=== PATIENT | male | born 1975 | race Caucasian/White ===

== ENCOUNTER → 2018-05-07 06:57 | Outpatient (CLI) | payer OTHER | LOC: D.MRI 06:57 | DX: M25.561 Pain in right knee (principal) ==

== ENCOUNTER 2018-06-13 06:11 | Day surgery (SDC) | payer OTHER ==
[~2018-06-13] VITALS: Ht 175.3 cm; Wt 86.6 kg
[2018-06-13 08:49] LABS: EOSINOPHILS 6.4 % (0-7); HEMATOCRIT 40.9 % (42.0-54.0); LYMPHOCYTES 25.7 % (15-50); MCH 32.2 pg (26.0-34.0); MCHC 34.2 g/dL (31.0-37.0); MEAN PLATELET VOLUME 9.2 fL (7.4-10.4); MONOCYTES 19.3 % (2-11); NEUTROPHILS 46.6 % (40-80); PLATELET COUNT 335 10x3/uL (130-400); RBC 4.35 10x6/uL (4.20-6.10); WBC 3.6 10x3/uL (4.8-10.8)
[2018-06-13 09:00] LABS: INR 1.15 (0.85-1.17); PROTIME 14.2 SECONDS (11.6-15.0)
[2018-06-13] MEDS ORDERED: ACIDOPHILUS-PE1 EACH PO (09:01)
[2018-06-13] MEDS ORDERED: TEGRETOL 100 M100 MG PO (09:02)
[2018-06-13] MEDS ORDERED: NEURONTIN 300300 MG PO (09:02)
[2018-06-13] MEDS ORDERED: HYDROCODON-ACE1 EAC7 PO (09:03)
[2018-06-13] MEDS ORDERED: MOBIC7.5 MG PO (09:04)
[2018-06-13] MEDS ORDERED: ZOSYN 3.3753.375 G1 IV (09:04)
[2018-06-13] MEDS ORDERED: EFFEXOR75 MG PO (09:05)
[2018-06-13 09:06] LABS: ALBUMIN 3.6 g/dL (3.4-5.0); ALKALINE PHOSPHATASE 76 U/L (46-116); ALT (SGPT) 49 U/L (10-68); CALC OSMOLALITY 283 mosm/kg (275-300); CALCIUM 9.2 mg/dL (8.5-10.1); CARBON DIOXIDE 24.8 mmol/L (21.0-32.0); CHLORIDE - SERUM 105 mmol/L (98-107); CREATININE - SERUM 0.8 mg/dL (0.6-1.3); GLUCOSE 95 mg/dL (74-106); SODIUM 142 mmol/L (136-145); UREA NITROGEN 15 mg/dL (7-18); eGFR NON AFRICAN AMERICAN > 90 mL/min (90-120)
[2018-06-13 09:18] VITALS: BP 111/79; Ht 175.3 cm; Wt 86.6 kg
--- NOTE | 2018-06-13 16:35 | NUR ---
PATIENT DRESSING IN ADC CLOTHING, DISCHARGE INSTRUCTIONS REVIEWED WITH PATIENT
--- NOTE | 2018-06-13 16:55 | NUR ---
DISCHARGED VIA PERSONAL WHEELCHAIR WITH ADC GUARDS
--- NOTE | 2018-06-14 14:28 | OP ---
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 PROCEDURES: 1. Arthroscopic I&D of the right knee. 2. Removal of all metal implants including the patient's anterior cruciate ligament graft. 3. Curettage and debridement of the distal femur. 4. Curettage and debridement of the proximal tibia. SURGEON: Raghu Blancas MD ANESTHESIA: General. INTRAOPERATIVE COMPLICATIONS: None. SUMMARY OF PATHOLOGIC FINDINGS: The patient has had longstanding osteomyelitic changes with failure of the ACL graft after having an anterior cruciate ligament revision for the third time. He has been on IV antibiotics for quite some time at the [facility]. The patient initially presented to me with a very infected appearing leg. He has since been on IV antibiotics and his cellulitis has improved; however, the MRI preoperatively did show 2 areas of osteomyelitis as described above. Plan was to remove all foreign material and have him try and heal this and if healed and he can still have an ACL, that will be done at a later date. OPERATIVE SUMMARY IN DETAIL: After obtaining the appropriate preoperative orthopedic surgery consent as well as anesthetic consultation, evaluation, and clearance, the patient was brought to the operating room and placed on the operating table in supine position. After adequate general laryngeal mask airway was administered, tourniquet was placed about the proximal aspect of the right lower extremity. Right lower extremity was then prepped and draped in routine sterile fashion. Leg was elevated, it was exsanguinated. Tourniquet was inflated to 250 mmHg. Routine inferolateral portal was established, followed by superomedial portal and inferomedial benson. Diagnostic arthroscopy obviously showed the patient to have synovitis with sequelae of knee infection. The anterior cruciate ligament graft was torn midsubstance. This was taken out in its entirety. Having completed this, attention was turned to the proximal tibia where the patient's staple was removed with evidence of osteomyelitis about the staple. Copious curettage was carried out here until no soft bone was felt. This was irrigated further. At this point, the tibial tunnel was identified and the graft was simply pushed into the knee. While it was pushed into the knee, arthroscopy was reestablished and all the graft material including suture was taken out of the knee with a combination of both arthroscopic resector as well as grasper. Through the same tunnel, the femoral portion of the graft was removed in its entirety until the transfix pin was identified. Having completed this, an incision was made laterally. The OPERATIVE REPORT [id number] JADENOLY transfix pin was then identified under fluoroscopy. The transfix pin was then tamped through the medial cortex, where it was then removed. This was further irrigated. Having completed this through the same incision, a previously placed TightRope button was also removed. Further irrigation was carried out both arthroscopically and in these open incisions. Having completed this, the incisions were gently reapproximated. Sterile dressings were applied. Tourniquet was deflated. The patient was awakened and taken to recovery room in stable condition. All final needle and sponge counts were correct. TRANSINT:[id number] Voice Confirmation ID: [id number] DOCUMENT ID: [id number] MAGALIS BARAHONA, RAGHU WEBER at 1428 CC: [id number] DICTATION DATE: 06/14/18 1149 [facility] MEDIC[facility] PHYSICIAN: 06/14/18 1321 [facility] 06/13/18 [id number] [place] [id number]
== END 2018-06-13 16:55 ==
LOC: D.OPS 06:11
PROVIDERS: Anesthesiology
DX: M86.8X5 Other osteomyelitis, thigh (principal); M86.8X6 Other osteomyelitis, lower leg; T84.89XA Other specified complication of internal orthopedic prosthetic devices, implants and grafts, initial encounter; M65.861 Other synovitis and tenosynovitis, right lower leg; Z01.812 Encounter for preprocedural laboratory examination